=== PATIENT | male | born 1975 | race Caucasian/White ===

== ENCOUNTER → 2020-01-13 19:00 | Outpatient (CLI) | payer BC, SELFPAY ==
--- NOTE | 2020-01-13 19:07 | US_ITS ---
STUDY: ABDOMINAL ULTRASOUND - RIGHT UPPER QUADRANT REASON FOR VISIT: Male, 44 years old RLQ PAIN X 2 WEEKS NAUSEA TECHNIQUE: Ultrasound evaluation of the right upper quadrant was performed with real-time and static townsend-scale imaging. TECHNICAL QUALITY: Adequate. COMPARISON: None. FINDINGS: Liver: The liver measures 17.9 cm. There is increased echogenicity consistent with fatty infiltration. The bile ducts are within normal limits. There is hepatic color flow. The direction of portal flow is hepatopetal. There is no demonstrated mass lesion. Gallbladder: Normal distended gallbladder. The gallbladder wall measures 2 mm. There is a negative sonographic Salgado''s sign. There is no pericholecystic fluid. There are no gallstones. Common Bile Duct (C.B.D.): The common bile duct measures 3 mm. Pancreas: Normal size of the head, body and tail of the pancreas. There is normal echogenicity of the pancreas. There is no demonstrated pancreatic mass or cyst. Right Kidney: Normal size of the right kidney. The right kidney measures 12.3 cm. Normal renal cortex. The right cortex measures 1.9 cm. There is no demonstrated renal mass or cyst. There is no right hydronephrosis. There is a 1 cm echogenic focus with posterior shadowing within the renal pelvis which may represent a renal stone. US/Abdomen Limited IMPRESSION: 1. Fatty infiltration of the liver. 2. Questionable stone in the right renal pelvis but no hydronephrosis. Nevertheless correlation with stone protocol CT would be useful. Electronically Signed: Dejuan Delaney MD at 19:39 EDT Tel , Service support ,
== END ==
LOC: US 19:06
PROVIDERS: PCP Internal Medicine; Visit Provider Internal Medicine
DX: R10.11 Right upper quadrant pain (principal)
CPT/HCPCS: 76705

== ENCOUNTER → 2020-04-18 17:08 | Outpatient (CLI) | payer BC, SELFPAY | PROVIDERS: PCP Internal Medicine; Referring Provider Internal Medicine; Visit Provider Internal Medicine | DX: Z20.828 Contact with and (suspected) exposure to other viral communicable diseases (principal) | CPT/HCPCS: 87635; C9803; U0003 ==

== ENCOUNTER → 2020-07-24 12:08 | Outpatient (CLI) | payer BC, SELFPAY | PROVIDERS: PCP Internal Medicine | DX: Z20.828 Contact with and (suspected) exposure to other viral communicable diseases (principal) | CPT/HCPCS: 87635; U0003 ==

== ENCOUNTER 2021-08-11 14:15 | Emergency (ER) | payer BC, SELFPAY ==
[2021-08-11 14:15] VITALS: BP 143/90; PULSE 94; RESP 16; TEMP 35.8; O2SAT 98; BMI 39.1
[2021-08-11 15:45] LABS: Bacteria 0 SEEN /hpf (None Seen); Mucous, Urine 0 SEEN /hpf (<or=2+); Red Blood Cells-Urine 0 SEEN /hpf (0-5); Squamous Epithelial Cells - UA 0 SEEN /hpf (0-5); White Blood Cells 0 SEEN /hpf (0-5)
[2021-08-11 15:52] LABS: Color, Urine Yellow (Yellow); Glucose, Dipstick 1000 mg/dl (Normal); Ketone-Dipstick Negative (Negative); Leukocyte Esterase-Dipstick Negative /ul (Negative); Nitrite-Dipstick Negative (Negative); Occult Blood-Urine 25 /ul (Negative); Protein-Dipstick 15 mg/dl (Negative); Urine Bilirubin Dipstick Negative (Negative); Urine Clarity Clear (Clear); Urine Urobilinogen Normal (Normal)
[2021-08-11 16:42] LABS: Absolute Lymphocyte Count 2.71 X10^3/uL (0.83-4.51); Absolute Neutrophil Count 6.2 X10^3/uL (2.0-7.7); Basophil# 0.09 X10^3/uL; Basophil% 0.9 % (0-1); Eosinophil# 0.28 X10^3/uL; Eosinophils% 2.8 % (0-5); Hematocrit 48.4 % (40-54); Lymphocyte # 2.71 X10^3/ul (0.83-4.51); Lymphocyte % 26.7 % (19-41); Mean Corp Hgb Conc 35.1 g/dL (32-36); Mean Corpuscular Volume 88.2 fL (80-94); Mean Platelet Vol. 9.6 fl (6.2-12.0); Monocyte% 7.9 % (0-10); NRBC Flagged by Analyzer 0 % (0-5); Neutrophil # 6.18 X10^3/uL (2.7-7.7); Neutrophil % 60.8 % (47-70); Platelet Count 343 K/mm3 (150-450); Red Blood Count 5.49 M/mm3 (4.6-6.2); White Blood Count 10.2 K/mm3 (4.4-11.0)
[2021-08-11 16:52] LABS: Anion Gap 6 (5-15); BUN 20 mg/dL (7-18); BUN/Creat Ratio 21.8 RATIO (10-20); Calcium,Total 9.4 mg/dL (8.5-10.1); Chloride 102 mmol/L (98-107); Creatinine, Serum 0.92 mg/dL (0.70-1.30); EST Glomerular Filtration Rate 95 mL/min (>60); Est Glom Filt Rate - Afr Amer 115 mL/min (>60); Estimated Creatinine Clearance 102.46 ml/min; Glucose 111 mg/dL (74-106); Potassium 4.2 mmol/L (3.5-5.1); Sodium Level 138 mmol/L (136-145)
[2021-08-11 17:28] VITALS: BP 146/86; PULSE 78; RESP 16; O2SAT 98
--- NOTE | 2021-08-11 18:25 | CT_ITS ---
STUDY: CT ABDOMEN AND PELVIS WITH CONTRAST REASON FOR EXAM: Male, 46 years old. Right lower quadrant pain RADIATION DOSAGE (If Supplied By Facility): CTDIvol = ( 22.06 ) mGy, DLP = ( 1420.07 ) mGycm TECHNIQUE: CT images were obtained from the dome of the diaphragm to the symphysis pubis without oral contrast. IV 100mL Isovue-370 was administered. Sagittal and coronal images were reconstructed. Individualized dose optimization techniques were used for this CT. COMPARISON: No prior FINDINGS: The visualized lung bases are unremarkable. There are calcifications projecting over the sinuses of Valsalva and aortic valve.. Normal liver. Normal gallbladder and extrahepatic biliary system. Normal spleen. Normal pancreas. 1.5 cm stone occupies the right renal pelvis without obstruction/hydronephrosis. There are no ureteral or bladder calculi. Contralateral collecting system is clear. There is benign left renal cyst and scar. These do not require follow-up. Perirenal space and adrenal glands are normal. Normal visualized stomach. Normal small intestine. Normal colon. The appendix is visualized and appears normal. Normal abdominal aorta. Normal inferior vena cava. Normal retroperitoneum. Normal urinary bladder. Normal abdominal wall. Normal osseous structures. Thecal sac is moderately stenotic at L3-L4 and L4-L5. Lateral recesses and foramina are stenotic bilaterally at L3-L4, L4-L5 and L5-S1. CT/Abdomen/Pelvis W IV Cont ONLY IMPRESSION: 1.5 cm right renal pelvis nonobstructing stone. Multilevel moderate lumbar spondylotic thecal sac, foraminal and lateral recess stenoses. 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 Echocardiography and cardiology referral advised. Electronically Signed: Yeni Villar MD at 19:32 EST Tel , Service support ,
[2021-08-11 19:00] VITALS: BP 142/62; PULSE 78; RESP 16; O2SAT 98
--- NOTE | 2021-08-11 21:08 | ED.VIS.GI ---
HPI HPI - GI History of Present Illness Chief Complaint: Abd Pain Narrative Narrative: 46-year-old male with right lower quadrant pain. He states been there for 5 days. He has intermittent nausea. He is not had fever or chills. He does complain of diarrhea. No urinary symptoms. No history of kidney stones. [facility] Medical History Depression Diabetes HTN (hypertension) Home Medications atorvastatin 10 mg PO DAILY 08/11/21 [History Last Taken Unknown] lisinopril-hydrochlorothiazide 1 tab PO DAILY 08/11/21 [History Last Taken Unknown] propranolol 20 mg PO TID 08/11/21 [History Last Taken Unknown] sertraline 200 mg PO DAILY 08/11/21 [History Last Taken Unknown] Allergy/AdvReac Type Severity Reaction Status Date / Time metformin AdvReac Diarrhea Verified 08/11/21 14:19 Social History Smoking Status: Former smoker ROS ROS ED Constitutional Constitutional ED: Denies chills, fever(s) or sweats Eyes Eyes: Denies blurry vision or change in vision ENT ENT ED: Denies ear pain or sore throat Cardiovascular Cardiovascular: Denies chest pain, palpitations or racing heartbeat Respiratory/Chest Respiratory/Chest: Denies cough, dyspnea or sputum Gastrointestinal Gastrointestinal: Reports abdominal pain, diarrhea and nausea; Denies constipation or vomiting Genitourinary Genitourinary ED: Denies dysuria, hematuria or urinary frequency Musculoskeletal Musculoskeletal: Denies arthralgias, myalgias or neck pain Integumentary Denies abscess, Abrasions or rash Neurologic Neurologic: Denies headache(s), paresthesias or weakness Psychiatric Psychiatric: Denies anxiety, depression, suicidal ideation or suicidal thoughts Endocrine Endocrinology: Denies polydipsia or polyuria EXAM Physical Exam Const Vital Signs: 08/11/21 14:15 08/11/21 17:28 08/11/21 19:00 Temperature 96.5 F L Temperature Source Temporal Pulse Rate 94 78 78 Respiratory Rate 16 16 16 Blood Pressure 143/90 H 146/86 H 142/62 H Blood Pressure Mean 107 106 88 Pulse Ox 98 98 98 Oxygen Delivery Method Room Air Room Air Room Air Positive obese General Appearance ED: NAD; Negative for pallor Nutritional Appearance: obese HEENT Reports moist mucous membranes normocephalic and atraumatic Eyes PERRL and EOMs intact bilaterally Resp normal respiratory effort and clear to auscultation bilaterally Cardio regular rate and regular rhythm GI non-distended Palpation: soft and tender RLQ Back/Spine no CVA tenderness Neuro Sensorium / Orientation: alert, oriented to person, oriented to place and oriented to time Psych mental status grossly normal and thought process normal Skin General Skin Exam: Negative for jaundice or pallor MDM MDM MDM Narrative Medical decision making narrative: Patient presenting with right lower quadrant pain. Based on the timeframe it does not sound appendicitis. He does not have any flank pain to suggest a kidney stone. I did check a urinalysis and there is a small amount of occult blood in here however there is no infection. CBC did not show a leukocytosis. Hemoglobin hematocrit are stable. Renal function electrolytes are normal. I did obtain a CT of the abdomen pelvis with IV contrast which did not show any acute intra-abdominal process. The radiologist did read the CAT scan of the abdomen pelvis is probable early degeneration of the aortic valve which was relayed to the patient. She will need to follow-up with his primary doctor on outpatient basis. As far his his GI complaints I will give him referral to Dr. Gooden as needed. Impression: 1. Abdominal pain unknown cause male Lab Data Labs: Laboratory Results - last 24 hr 08/11/21 08/11/21 08/11/21 15:41 16:15 16:15 WBC 10.2 RBC 5.49 Hgb 17.0 H Hct 48.4 MCV 88.2 MCH 31.0 MCHC 35.1 RDW Std Deviation 39.0 RDW Coeff of Patricia 12.0 Plt Count 343 MPV 9.6 Immature Gran % (Auto) 0.900 Neut % (Auto) 60.8 Lymph % (Auto) 26.7 Patrick % (Auto) 7.9 Eos % (Auto) 2.8 Baso % (Auto) 0.9 Absolute Neuts (auto) 6.2 Absolute Lymphs (auto) 2.71 Nucleated RBC % 0 Sodium 138 Potassium 4.2 Chloride 102 Carbon Dioxide 30.0 Anion Gap 6 BUN 20 H Creatinine 0.92 Estim Creat Clear Calc 102.46 Est GFR (MDRD) Af Amer 115 Est GFR (MDRD) Non-Af 95 BUN/Creatinine Ratio 21.8 H Glucose 111 H Calcium 9.4 Urine Color Yellow Urine Clarity Clear Urine pH 6.0 Ur Specific [place] 1.020 Urine Protein 15 H Urine Glucose (UA) 1000 H Urine Ketones Negative Urine Occult Blood 25 H Urine Nitrite Negative Urine Bilirubin Negative Urine Urobilinogen Normal Ur Leukocyte Esterase Negative Urine RBC 0 SEEN Urine WBC 0 SEEN Ur Squamous Epith Cells 0 SEEN Urine Bacteria 0 SEEN Urine Mucus 0 SEEN Radiography Diagnostic Testing: Clinical Impression(s) from Imaging Studies Abdomen/Pelvis CT 08/11/21 18:25 IMPRESSION: 1.5 cm right renal pelvis nonobstructing stone. Multilevel moderate lumbar spondylotic thecal sac, foraminal and lateral recess stenoses. 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 Echocardiography and cardiology referral advised. Electronically Signed: Yeni Villar MD at 19:32 EST Tel , Service support , Discharge Plan Triage Chief Complaint: Abd Pain ED Provider: Ace May Dx/Rx/DC Orders Instructions: ED Abdominal Pain Unkn Cause Male... Prescriptions: No Action atorvastatin 10 mg tablet 10 mg PO DAILY RF: 0 sertraline 100 mg tablet 200 mg PO DAILY RF: 0 lisinopril-hydrochlorothiazide 20-25 mg tablet 1 tab PO DAILY RF: 0 propranolol 20 mg tablet 20 mg PO TID RF: 0 Primary Care Provider: Jeane Herndon Referrals: Jeane Herndon MD [Primary Care Provider] - Shabbir Gooden DO [STAFF PHYSICIAN] - As Needed Disposition Disposition: Home, Self Care
== END 2021-08-11 21:17 | disposition home or self-care (01) ==
PROVIDERS: Emergency Provider Student in an Organized Health Care Education/Training Program; PCP Internal Medicine; Visit Provider Student in an Organized Health Care Education/Training Program
DX: R10.31 Right lower quadrant pain (principal); E11.9 Type 2 diabetes mellitus without complications; I35.8 Other nonrheumatic aortic valve disorders; I10 Essential (primary) hypertension; F32.A Depression, unspecified; E66.9 Obesity, unspecified; Z68.39 Body mass index [BMI] 39.0-39.9, adult; Z79.899 Other long term (current) drug therapy; Z87.891 Personal history of nicotine dependence
CPT/HCPCS: 74177; 80048; 81001; 85025; 99283; Q9967; A4216